=== PATIENT | female | born 1950 | race Two or more races ===

== ENCOUNTER 2018-03-02 10:47 | Outpatient (CLI) | payer OTHER ==
[~2018-03-02 10:47] MED LIST: VOLTAREN100 GM TP
== END 2018-03-02 15:49 | disposition home or self-care (01) ==
LOC: MRI 10:47
DX: M48.02 Spinal stenosis, cervical region (principal)
CPT/HCPCS: 72148

== ENCOUNTER → 2018-03-03 | Outpatient (CLI) | payer OTHER | END | disposition home or self-care (01) | LOC: RAD 501 14:49 | DX: M25.561 Pain in right knee (principal) ==

== ENCOUNTER 2018-03-18 11:14 | Outpatient (CLI) | payer OTHER | END 2018-03-18 12:00 | disposition home or self-care (01) | LOC: NUCLEAR 11:14 | DX: M81.0 Age-related osteoporosis without current pathological fracture (principal) ==

== ENCOUNTER 2018-03-19 10:01 | Outpatient (CLI) | payer OTHER | END 2018-03-19 10:15 | disposition home or self-care (01) | LOC: TOM 10:01 → MRI 10:01 | DX: M50.00 Cervical disc disorder with myelopathy, unspecified cervical region (principal) | CPT/HCPCS: 72141 ==

== ENCOUNTER 2019-01-05 14:04 | Outpatient (CLI) | payer OTHER | END 2019-01-05 15:00 | disposition home or self-care (01) | LOC: NUCLEAR 14:04 | DX: M81.0 Age-related osteoporosis without current pathological fracture (principal) ==